=== PATIENT | male | born 1995 | race Caucasian/White ===

== ENCOUNTER 2020-08-02 01:28 | Emergency (ER) | payer SELFPAY ==
--- NOTE | ~2020-08-02 | XR_ITS ---
XR hand RT min 3V DATE: 08/02/2020 02:01 INDICATION: Punching injury. Laceration the medial side of hand TECHNIQUE: 3 views COMPARISON: None FINDINGS: There are multiple small radiopaque soft tissue foreign bodies of the fourth digit adjacent to the neck and head of the proximal phalanx and a larger up to 6 mm radiopaque foreign body at the proximal aspect of the fifth digit. There is evidence of a laceration of the medial aspect of the fou rth digit in the area of the radiopaque foreign bodies. No fracture or dislocation, periosteal reaction or bone destruction or joint space narrowing, erosive change or chondrocalcinosis. IMPRESSION: Soft tissue laceration of fourth digit and radiopaque foreign bodies of the fourth and fi fth digits Reviewed, dictated and finalized at location A. STRIAL ECOLOGIST IMPRESSION: Soft tissue laceration of fourth digit and radiopaque foreign lisa s of the fourth and fifth digits
[2020-08-02 01:49] VITALS: BP 118/84; PULSE 76; RESP 20; TEMP 36.8; O2SAT 96
[2020-08-02] MEDS: TETANUS,DIPHTHERIA,AC PERTUSSIS ADULT (0.5 ML) BOOSTRIX IM (02:03)
[2020-08-02 05:45] VITALS: BP 113/80; PULSE 89; RESP 18; O2SAT 98
--- NOTE | 2020-08-02 05:54 | ED.WOUNDLAC ---
HPI - Wound/Laceration General Chief Complaint: Wound/Laceration Stated Complaint: punched a table Time Seen by Provider: 08/02/20 01:32 Source: RN notes reviewed History of Present Illness HPI narrative: Patient presents emergency department from home for hand injury. Patient states this evening became upset and punched through a wooden table he also had a glass with the glass breaking he notes numerous lacerations over the right hand. The patient is right-hand dominant he states his last tetanus shot was over 10 years ago he denies any other trauma or injury Review of Systems Review of Systems: Narrative: Gen.: Denies fevers or chills Musculoskeletal: See HPI Neuro: Denies numbness, tingling, weakness Skin: See HPI Endo: Denies DM PMFSH Past Medical History Medical History (Updated 08/02/20 @ 06:07 by Osmany Guzmán DO) Patient denies significant medical history Social History Social History (Updated 08/02/20 @ 05:56 by Osmany Guzmán DO) Smoking status: Never smoker Exam Narrative: Exam Narrative: APPEARANCE: No acute distress, nontoxic, resting in bed Eyes: EOMI HEENT: Normocephalic, atraumatic, RESPIRATORY: No respiratory distress MUSCULOSKELETAl: The right hand has multiple lacerations please see skin for full details full flexion and extension of all 5 MCP PIP and DIP joints, capillary refill less than 3 seconds all 5 digits, from point tactile discrimination down to 3 mm in all 5 digits NEURO: Awake and alert. Following commands, speech normal, no focal deficits SKIN:: Warm, dry. Normal right lateral hand has a 7 cm laceration there is checkmark shaped and is linear and deep with mild venous bleeding and no foreign bodies, the dorsal base of the fifth digit has a 2 cm laceration that is linear and deep with a large piece of glass present, the right fourth digit has a 3 cm laceration over the PIP joint there is a linear and deep with laceration of the extensor tendon as well as bone fragment chip seen as well as several small pieces of glass, the palmar aspect of the right fourth digit proximal to the PIP joint has a 1 similar laceration is linear and deep with mild venous bleeding and no foreign body, but the dorsal hand over the base of the second digit has a small avulsion with several other superficial abrasions seen on dorsal aspect of the hand with no other foreign bodies noted Course Course Emergency Course: Called and discussed with Dr. Velásquez at [facility] for plastic surgery. At this time we reviewed the patient's lacerations as well as contamination exposure of bone and fourth digit states the patient may follow-up as an outpatient on Monday with plan for surgery on Monday request the patient started on Keflex with the patient to be placed in a splint of the third fourth and fifth digits of the right hand. Request the patient receive a Covid swab so the patient may be cleared for surgery Discussed with patient results of workup and diagnosis. Discussed need for follow-up with primary care, proper use of medication, and reasons to return to the emergency department. Patient understands and agrees to current treatment plan discussed my conversations with hand surgeon Vital Signs Vital signs: Vital Signs Temperature 98.2 F 08/02/20 01:49 Pulse Rate 76 08/02/20 01:49 Respiratory Rate 20 08/02/20 01:49 Blood Pressure 118/84 08/02/20 01:49 Pulse Oximetry 96 08/02/20 01:49 Temperature 98.2 F 08/02/20 01:49 Pulse Rate 89 08/02/20 05:45 Respiratory Rate 18 08/02/20 05:45 Blood Pressure 113/80 08/02/20 05:45 Pulse Oximetry 98 08/02/20 05:45 Procedures Laceration Laceration 1: ====== Skin Level ====== ====== Subcutaneous Layer ====== ====== Muscle Layer ====== ====== Tendon Layer ====== Dressin cm hand laceration: Verbal consent was obtained prior to the procedure. The wound was cleaned with Betadine and irrigated with copious
[2020-08-02] MEDS: CEPHALEXIN 500 MG CAPSULE PO (06:14)
--- NOTE | 2020-08-02 06:23 | PC.NURSE ---
pt has multi laceration to the right hand .hand splinted with a sterile dressing first and apartial ocl with a kojo wrap and web under ocl.
[2020-08-03 18:21] LABS: SARS-CoV-2 RNA PCR Negative
== END 2020-08-02 06:50 | disposition home or self-care (01) ==
PROVIDERS: Emergency Provider Emergency Medicine
DX: S66.326A Laceration of extensor muscle, fascia and tendon of right little finger at wrist and hand level, initial encounter (principal); S61.411A Laceration without foreign body of right hand, initial encounter; S61.214A Laceration without foreign body of right ring finger without damage to nail, initial encounter; Z20.822 Contact with and (suspected) exposure to COVID-19; Z23 Encounter for immunization; W25.XXXA Contact with sharp glass, initial encounter; W45.8XXA Other foreign body or object entering through skin, initial encounter; W22.8XXA Striking against or struck by other objects, initial encounter
CPT/HCPCS: 12005; 73130; 90471; 90715; 99283; A9270; C9803; U0003; U0005

== ENCOUNTER 2020-08-12 12:32 | Emergency (ER) | payer SELFPAY ==
[2020-08-12 12:36] VITALS: BP 134/98; PULSE 92; RESP 16; TEMP 36.2; O2SAT 99
[2020-08-12 13:03] VITALS: BP 117/72; PULSE 92; RESP 17; TEMP 35.8; O2SAT 99
--- NOTE | 2020-08-12 13:47 | PC.NURSE ---
PT WASHING HANDS WITH WARM WATER AND SOAP AT THIS TIME PER ESVIN SANTANA.
--- NOTE | 2020-08-12 14:52 | PC.NURSE ---
ESVIN cr at bedside for suture removal.
[2020-08-12 15:04] VITALS: BP 113/75; PULSE 68; RESP 16; O2SAT 100
--- NOTE | 2020-08-12 16:24 | ED.GENADULT ---
HPI - General Adult General Chief complaint: Wound/Laceration Stated complaint: suture removal Time Seen by Provider: 08/12/20 12:36 Source: patient Mode of arrival: ambulatory Limitations: no limitations History of Present Illness HPI narrative: Patient presents for evaluation of wound and suture removal on his right hand that was placed on 08-02-20. Patient states that he has not yet followed up with a hand surgeon and still experiences some tingling/numbness and decreased range of motion. He states that he will be seen by a hand surgeon this upcoming week. He states that he has left the bandage in place the entire 10 days. He states that he has been taking his antibiotic and pain medications as instructed. He denies any drainage, fever, chills, discharge or any other concerns. Related Data Allergies Allergy/AdvReac Type Severity Reaction Status Date / Time pecan nut Allergy Unknown Verified 08/12/20 14:37 Review of Systems Review of Systems: Narrative: CONSTITUTIONAL: Denies fever, chills, or sweats. EYES: Denies visual changes, redness, or discharge. ENT: Denies rhinorrhea, congestion, sore throat, or otalgia. CARDIOVASCULAR: Denies chest pain, palpitations, or edema. RESPIRATORY: Denies cough or dyspnea. GASTROINTESTINAL: Denies abdominal pain, nausea, vomiting, or diarrhea. GENITOURINARY: Denies dysuria or hematuria. SKIN: Reports lacerations denies rash or itching. MUSCULOSKELETAL: Denies back pain, joint pain, or myalgia. NEUROLOGIC: Denies headache, numbness, dizziness, or weakness. PSYCHIATRIC: Denies anxiety or depression. [facility] Past Medical History Medical History (Updated 08/12/20 @ 14:37 by Racheal Monterroso) Patient denies significant medical history Social History Social History (System 08/12/20 @ 14:37 by Ian Luna) Smoking status: Never smoker Exam Narrative: Exam Narrative: GENERAL: Well-appearing, well-nourished, and in no acute distress. HEAD: Normocephalic, atraumatic. EYES: PERRLA and EOMI. NECK: Supple. No adenopathy or masses. CHEST: Clear to auscultation. No respiratory distress. No wheezes rales or rhonchi EXTREMITIES: Some decreased range of motion and sensation to right third digit. No edema. SKIN: Well-healed lacerations to right hand. Dressing noted. No erythema or drainage noted. Warm, dry, no rash. NEURO: No focal deficits. Alert and oriented x3. PSYCH: Normal mood and affect. Course Course Emergency Course: Hand wash with antibacterial and saline to remove. Sutures are removed without complication. Lacerations are well-healed without signs of disease or infection. Vital Signs Vital signs: Vital Signs Temperature 97.2 F L 08/12/20 12:36 Pulse Rate 92 08/12/20 12:36 Respiratory Rate 16 08/12/20 12:36 Blood Pressure 134/98 H 08/12/20 12:36 Pulse Oximetry 99 08/12/20 12:36 Temperature 96.5 F L 08/12/20 13:03 Pulse Rate 68 08/12/20 15:04 Respiratory Rate 16 08/12/20 15:04 Blood Pressure 113/75 08/12/20 15:04 Pulse Oximetry 100 08/12/20 15:04 Medical Decision Making MDM Narrative Medical decision making narrative: Discussed with the patient the importance of following up with hand surgeon is tenderness in the injury was suspected during his original exam and there is still some signs of states on today. Patient states that he is planning on following up with a hand surgeon in the office next week. Patient has been instructed to finish his antibiotics and to wash the area with antibacterial soap and apply antibacterial ointment. Differential Diagnosis Differential Diagnosis: Lacerations, abscess, nerve injury, tendon injury Vital Signs Vital Signs: Vital Signs Temperature 97.2 F L 08/12/20 12:36 Pulse Rate 92 08/12/20 12:36 Respiratory Rate 16 08/12/20 12:36 Blood Pressure 134/98 H 08/12/20 12:36 Pulse Oximetry 99 08/12/20 12:36 Temperature 96.5 F L 08/12/20 13:03 Pulse Rate 68 08/12/20 15:04 Respiratory Ra
== END 2020-08-12 15:05 | disposition home or self-care (01) ==
PROVIDERS: Emergency Provider Emergency Medicine; PCP Emergency Medicine
DX: S61.401D Unspecified open wound of right hand, subsequent encounter (principal); X58.XXXD Exposure to other specified factors, subsequent encounter
CPT/HCPCS: 99281

== ENCOUNTER 2022-03-12 09:23 | Emergency (ER) | payer SELFPAY ==
[2022-03-12 09:40] VITALS: BP 141/100; PULSE 102; RESP 18; TEMP 36.4; O2SAT 100
[2022-03-12 10:02] LABS: Basophils Percent Auto 0.5 % (0.2-1.2); Eosinophils Percent Auto 0.5 % (0-4.4); Hematocrit 46.4 % (42.0-52.0); Hemoglobin 15.9 g/dL (14.0-18.0); Immature Granulocyte Absolute 0.03 K/mm3 (0.00-0.031); Immature Granulocyte Percent A 0.4 % (0-0.5); Lymphocytes Absolute Auto 2.12 K/mm3 (0.9-3.2); Lymphocytes Percent Auto 27.7 % (18.3-44.2); Mean Corpuscular HGB Conc 34.3 g/dl (32-36); Mean Corpuscular Hemoglobin 30.2 pg (26-34); Mean Platelet Volume 9.4 fl (7.4-10.4); Monocytes Absolute Auto 0.5 K/mm3 (0.1-0.6); Monocytes Percent Auto 6.4 % (2.6-8.5); Neutrophils Absolute Auto 4.9 K/mm3 (1.3-6.7); Neutrophils Percent Auto 64.5 % (45.5-73.1); Platelet Count Result 314 k/mm3 (150-375); Red Blood Count 5.27 M/mm3 (4.6-6.20); Red Cell Distribution Width 13.2 % (11.5-14.5); White Blood Count 7.7 K/mm3 (4.5-10.0)
--- NOTE | 2022-03-12 10:02 | ED.GENADULT ---
HPI - General Adult General Chief complaint: Psychiatric Symptoms Stated complaint: SI Time Seen by Provider: 03/12/22 09:26 Source: RN notes reviewed History of Present Illness HPI narrative: Patient presents emergency room from home for suicidal ideation. Patient states he has been having thoughts of harming himself for the past 1 week. He states his plan would be to shoot himself and he does have a gun at home states he did sit holding the gun last night but did not use it he states that his thoughts of suicide have been increased by his alcohol use and states he drinks heavily daily he denies any recent illness he denies any attempt to harm self or for the past Related Data Home Medications Medication Instructions Recorded Confirmed No Home Medications 03/12/22 03/12/22 Allergies Allergy/AdvReac Type Severity Reaction Status Date / Time pecan nut Allergy Unknown Verified 03/12/22 11:15 Review of Systems Review of Systems: Gen.: Denies fevers or chills ENT: Denies congestion Respiratory: Denies shortness of breath or cough CV: Denies chest pain or palpitations GI: Denies abdominal pain nausea, emesis or diarrhea Musculoskeletal: Denies back pain or muscle pain Neuro: Denies numbness, tingling, weakness or focal weakness Skin: Denies rash Psych: See HPI Except as documented, all other systems reviewed and negative PMFSH Past Medical History Medical History Patient denies significant medical history Social History Social History (Updated 03/12/22 @ 10:03 by Osmany Guzmán DO) Smoking status: Never smoker Tobacco type: e-cigarettes/vaping Alcohol intake: current Substance use type: crack/cocaine Gender identity (if verbalized by the patient): Male Exam Narrative: APPEARANCE: No acute distress, nontoxic, resting in bed EYES: EOMI HEENT: Normocephalic, atraumatic, OMM RESPIRATORY: No respiratory distress Clear to auscultation bilaterally with no rhonchi wheezing or rales. CARDIOVASCULAR: Regular rate and rhythm without murmurs rubs or gallops. ABDOMINAL: Soft, nontender, nondistended, no rebound or guarding MUSCULOSKELETAl: Moves all extremities. No clubbing, cyanosis or edema. NEURO: Awake and alert. Following commands, speech normal, no focal deficits SKIN:: Warm, dry. No rashes lesions or abrasions PSYCHIATRIC: Positive suicidal ideation, denies homicidal ideation Course Course Emergency Course: Patient is medically cleared for psychiatric placement and transport Patient evaluated by crisis spanish literature professor and patient is voluntary at this time Patient accepted at [facility] by Dr. Montenegro. He request the patient receive a banana bag prior to being transferred Vital Signs Vital signs: Vital Signs Temperature 97.5 F L 03/12/22 09:40 Pulse Rate 102 H 03/12/22 09:40 Respiratory Rate 18 03/12/22 09:40 Blood Pressure 141/100 H 03/12/22 09:40 Pulse Oximetry 100 03/12/22 09:40 Temperature 97.8 F 03/12/22 17:45 Pulse Rate 88 03/12/22 17:45 Respiratory Rate 16 03/12/22 17:45 Blood Pressure 144/86 H 03/12/22 17:45 Pulse Oximetry 99 03/12/22 17:45 Medical Decision Making Vital Signs Vital Signs: Vital Signs Temperature 97.5 F L 03/12/22 09:40 Pulse Rate 102 H 03/12/22 09:40 Respiratory Rate 18 03/12/22 09:40 Blood Pressure 141/100 H 03/12/22 09:40 Pulse Oximetry 100 03/12/22 09:40 Temperature 97.8 F 03/12/22 17:45 Pulse Rate 88 03/12/22 17:45 Respiratory Rate 16 03/12/22 17:45 Blood Pressure 144/86 H 03/12/22 17:45 Pulse Oximetry 99 03/12/22 17:45 Lab Data Result diagrams: 03/12/22 09:55 03/12/22 09:55 Labs: Lab Results 03/12/22 03/12/22 03/12/22 Range/Units 09:55 09:55 09:55 WBC 7.7 (4.5-10.0) K/mm3 RBC 5.27 (4.6-6.20) M/mm3 Hgb 15.9 (14.0-18.0) g/dL Hct 46.4 (42.0-52.0) % MCV 88.0
[2022-03-12] MEDS: THIAMINE HCL 200 MG/2 ML VIAL 100 MG IV PUSH (10:08)
[2022-03-12] MEDS: SODIUM CHLORIDE 0.9% IV 1,000 ML 999 ML IV CONT (10:08)
[2022-03-12 10:20] LABS: Alanine Aminotransferase 89 U/L (6-50); Albumin Level 4.4 g/dL (3.5-5.1); Alkaline Phosphatase 61 U/L (38-126); Anion Gap 15 mmol/L (8-16); Aspartate Amino Transferase 61 U/L (17-59); Bilirubin,Total 0.9 mg/dL (0.2-1.3); Blood Urea Nitrogen 11 mg/dL (9-20); Calcium 8.6 mg/dL (8.4-10.2); Carbon Dioxide 24 mmol/L (22-30); Chloride 104 mmol/L (98-107); Estimated Glomerular Filt Rate > 60; Ethanol 98 mg/dL (<10); Glucose 102 mg/dL (65-110); Potassium 3.1 mmol/L (3.4-5.0); Sodium 143 mmol/L (137-145)
[2022-03-12 10:38] LABS: SARS-CoV-2 RNA PCR Negative
[2022-03-12] MEDS: POTASSIUM CHLORIDE 20 MEQ TABLET 40 MEQ PO (10:48)
[2022-03-12 11:01] LABS: Magnesium 2.2 mg/dL (1.6-2.3)
[2022-03-12 11:45] LABS: Add Urine Microscopic? NO; Appearance Urine Clear (Clear); Bilirubin Urine Negative (Negative); Blood Urine Negative (Negative); Color Urine Yellow (Yellow); Glucose Urine UA Negative (Negative); Ketones Urine Negative (Negative); Leukocyte Esterase Ur Negative LEU/UL (Negative); Nitrate Urine Negative (Negative); Protein Urine Negative (Negative); Urobilinogen Urine Negative mg/dL (<2.0)
[2022-03-12 11:52] LABS: Amphetamine Screen Urine Negative (Negative); Barbiturate Screen Urine Negative (Negative); Benzodiazepines Screen Urine Negative (Negative); Cannabinoid Screen Urine Negative (Negative); Cocaine Screen Urine Positive (Negative); Methadone Screen Urine Negative (Negative); Opiate Screen Urine Negative (Negative); Phencyclidine Screen Urine Negative (Negative)
[2022-03-12 12:29] LABS: Ethanol 64 mg/dL (<10)
[2022-03-12 15:24] VITALS: BP 132/93; PULSE 89; RESP 16; TEMP 36.8; O2SAT 98
--- NOTE | 2022-03-12 15:44 | PC.NURSE ---
speaking to [facility] on the phone.
[2022-03-12 17:45] VITALS: BP 144/86; PULSE 88; RESP 16; TEMP 36.6; O2SAT 99
[2022-03-12 18:55] VITALS: BP 150/74; PULSE 88; RESP 16; O2SAT 99
--- NOTE | 2022-03-12 19:03 | PC.NURSE ---
[phone] no [facility] available called [facility] at [phone] no truck available
--- NOTE | 2022-03-12 19:37 | PC.NURSE ---
called [facility] at 1926 to request transport. declined called [facility] at 1928 for ETA update. ETA 15 - 30 minutes.
[2022-03-12] MEDS: chlordiazePOXIDE (*CRX) 25 MG CAPSULE 50 MG PO (20:09)
--- NOTE | 2022-03-12 20:15 | PC.NURSE ---
[facility] here
== END 2022-03-12 20:10 ==
PROVIDERS: Emergency Provider Emergency Medicine; PCP Emergency Medicine
DX: R45.851 Suicidal ideations (principal); E87.6 Hypokalemia; F10.10 Alcohol abuse, uncomplicated; F17.290 Nicotine dependence, other tobacco product, uncomplicated; F14.90 Cocaine use, unspecified, uncomplicated; Z20.822 Contact with and (suspected) exposure to COVID-19
CPT/HCPCS: 36415; 80053; 80307; 81003; 83735; 84443; 85025; 96361; 96374; 99285; A9270; C9803; J3411; J7030; J7120; U0003; U0005

== ENCOUNTER 2022-05-11 11:16 | Emergency (ER) | payer SELFPAY ==
[2022-05-11 11:49] VITALS: BP 130/75; PULSE 92; RESP 20; TEMP 36.6; O2SAT 98
[2022-05-11 12:38] LABS: Influenza A QL RT-PCR Negative (Negative); Influenza B QL RT-PCR Negative (Negative); SARS-CoV-2 RNA PCR Negative
--- NOTE | 2022-05-11 14:28 | ED.URI ---
HPI - URI/Sore Throat General Chief Complaint: Upper Respiratory Infection Stated Complaint: body aches and chills - exposure to flu Time Seen by Provider: 05/11/22 12:03 Source: patient Mode of arrival: ambulatory Limitations: no limitations History of Present Illness HPI Narrative: This is a 27 year old male that presents to the ER for cold symptoms present since yesterday. Reports fatigue, myalgias, chills, and sweats. Reports 2 people in his household currently have influenza. Denies fever, cough, congestion, sore throat, vomiting, or diarrhea. Related Data Home Medications Medication Instructions Recorded Confirmed No Home Medications 03/12/22 03/12/22 Allergies Allergy/AdvReac Type Severity Reaction Status Date / Time pecan nut Allergy Unknown Verified 05/11/22 11:52 Review of Systems Review of Systems: CONSTITUTIONAL: Reports chills, sweats. Denies fever EYES: Denies redness, or discharge. ENT: Denies rhinorrhea, congestion, sore throat, or otalgia. RESPIRATORY: Denies cough GASTROINTESTINAL: Denies abdominal pain, nausea, vomiting, or diarrhea. All systems reviewed & are unremarkable except as noted in HPI and below PMFSH Past Medical History Medical History Patient denies significant medical history Social History Social History (Updated 03/12/22 @ 10:03 by Osmany Guzmán DO) Smoking status: Never smoker Tobacco type: e-cigarettes/vaping Alcohol intake: current Substance use type: crack/cocaine Gender identity (if verbalized by the patient): Male Exam Narrative: GENERAL: Well-appearing, well-nourished, and in no acute distress. HEAD: Normocephalic, atraumatic. EYES: EOMI. ENT: Nares clear, no rhinorrhea or epistaxis. Mucous membranes moist. Oropharynx without tonsillar hypertrophy exudate or other lesions. Bilateral TMs pearly holt non-bulging NECK: Supple. No adenopathy or masses. CHEST: Clear to auscultation. No respiratory distress. No wheezes rales or rhonchi HEART: Regular rate and rhythm. No murmur heard. Normal peripheral pulses. EXTREMITIES: Normal range of motion. No edema. SKIN: Warm, dry, no rash. NEURO: No focal deficits. Alert and oriented x3. PSYCH: Normal mood and affect Course Vital Signs Vital signs: Vital Signs Temperature 98 F 05/11/22 11:49 Pulse Rate 92 05/11/22 11:49 Respiratory Rate 20 05/11/22 11:49 Blood Pressure 130/75 05/11/22 11:49 Pulse Oximetry 98 05/11/22 11:49 Oxygen Delivery Room Air 05/11/22 11:49 Temperature 98 F 05/11/22 11:49 Pulse Rate 92 05/11/22 11:49 Respiratory Rate 20 05/11/22 11:49 Blood Pressure 130/75 05/11/22 11:49 Pulse Oximetry 98 05/11/22 11:49 Oxygen Delivery Room Air 05/11/22 11:49 MDM - URI/Sore Throat MDM Narrative Medical decision making narrative: Patient presents to the emergency department for cold symptoms ongoing since yesterday. Reports household contacts with influenza. His flu and COVID tests are negative today. He is afebrile and nontoxic-appearing. Oxygen saturation is normal on room air. Lungs are clear on exam. He was instructed on continued care of likely viral infection. Spoke with patient about possibly prescribing Tamiflu if needed for prophylaxis or treatment if worsening symptoms. He does not wish to pursue this at this time. He is to follow-up with primary care provider. He was given warnings to return to the ER Lab Data Attestation: I reviewed the patient's lab results. Labs: Lab Results 05/11/22 Range/Units 11:54 Influenza A (RT-PCR) Negative (Negative) Influenza B (RT-PCR) Negative (Negative) SARS-CoV-2 RNA (RT-PCR) Negative Critical Care Time Critical Care Time Critical Care Time: No Discharge Plan Discharge Clinical Impression: Viral infection Patient Disposition: Home, Self-Care Condition: Stable Instructions: Viral Syndrome (ED) A
== END 2022-05-11 14:45 | disposition home or self-care (01) ==
PROVIDERS: Emergency Medicine; Emergency Provider Physician Assistant
DX: B34.9 Viral infection, unspecified (principal); Z20.822 Contact with and (suspected) exposure to COVID-19
CPT/HCPCS: 87636; 99283

== ENCOUNTER 2022-11-29 10:35 | Emergency (ER) | payer BC, SELFPAY ==
--- NOTE | ~2022-11-29 | XR_ITS ---
EXAMINATION: XR chest 2V DATE: 11/29/2022 11:35 INDICATION: 4 days of cough and chest tightness TECHNIQUE: PA and lateral views of the chest were obtained. COMPARISON: None FINDINGS: The lungs are clear with no focal airspace opacities, pulmonary edema, pleural effusion or pneumothor ax. The cardiomediastinal silhouette is normal. Calcified mediastinal lymph nodes consistent with old granulomatous disease. Mild thoracic spondylosis. IMPRESSION: 1. No acute cardiopulmonary disease. Reviewed, dictated and finalized at location A.
[2022-11-29 11:00] VITALS: BP 117/76; PULSE 90; RESP 16; TEMP 36.5; O2SAT 98
--- NOTE | 2022-11-29 11:42 | ED.URI ---
HPI - URI/Sore Throat General Chief Complaint: Upper Respiratory Infection Stated Complaint: Chest Tightness/Sore Throat Time Seen by Provider: 11/29/22 11:40 Source: patient, RN notes reviewed and old records reviewed Mode of arrival: ambulatory Limitations: no limitations History of Present Illness HPI Narrative: 27 year old male who presents to [facility] care with complaints of cough, chest tightness, sore throat and some nasal congestion since Monday and Monday with his symptoms worsening yesterday. Patient reports he stopped at a [employer] station and bought a vape and that is when he noticed all the symptoms,reports he threw it away. Patient has used cough drops for his symptoms, has not taken any OTC antihistamines or any decongestant medications or any OTC pain medications, Patient reports that he needs a work note. MD elicited complaint: cough, sore throat, rhinorrhea and nasal congestion Onset (ago): day(s) (4) Pain scale (0-10): 4 Able to tolerate fluids by mouth: Yes Exacerbating factors: supine positioning Treatments prior to arrival: other (cough drop) Related Data Allergies Allergy/AdvReac Type Severity Reaction Status Date / Time pecan nut Allergy Anaphylaxis Verified 11/29/22 11:12 Review of Systems Review of Systems: CONSTITUTIONAL: Denies malaise, chills, sweats, or fever. EYES: Denies visual changes, redness, or discharge. ENT: Reports rhinorrhea, congestion, no sinus pain,no otalgia positive for sore throat. CARDIOVASCULAR: Denies chest pain, palpitations, or edema, reports chest tightness with cough RESPIRATORY: Reports productive cough.? Denies dyspnea. GASTROINTESTINAL: Denies abdominal pain, nausea, vomiting, diarrhea SKIN: Denies rash or itching. MUSCULOSKELETAL: Denies myalgia. NEUROLOGIC: Denies headache. All systems reviewed & are unremarkable except as noted in HPI and below PMFSH Past Medical History Medical History (Updated 11/30/22 @ 17:51 by Norma Patiño NP) Patient denies significant medical history Surgical History Surgical History H/O hand surgery plastic surgery right hand at [facility] for lacerations and tendon repair Social History Social History (Updated 11/30/22 @ 17:39 by STEPH Sanchez Smoking status: Current every day smoker Tobacco type: e-cigarettes/vaping Alcohol intake: current Substance use type: crack/cocaine Gender identity (if verbalized by the patient): Male Comments At time of signature, agree with nursing past medical, surgical, social and family history. There is no relevant family history pertinent to the presenting complaint Exam Narrative: GENERAL: Well-appearing, well-nourished, and in no acute distress. HEAD: Normocephalic EYES: PERRLA, conjunctivae clear ENT: Nares clear, turbinates edematous and erythematous, clear discharge. Mucous membranes moist. TM pearly holt with dull light reflex bilaterally; no tragal tenderness. Oropharynx erythematous without lesions. Tonsils not present and without exudate, no drooling, no hoarseness, no trismus, uvula midline.post nasal drainage NECK: Supple. No lymphadenopathy CHEST:decreased left base with wheezing noted on to auscultation, breath sounds equal. positive for wheezing,no rhonchi, rales, or stridor. No respiratory distress, speaks in full sentences.SAO2 98% on room air, cough productive greenish tinged mucous HEART: Regular rate and rhythm. No murmur heard. SKIN: Warm, dry, no rash. NEURO: Alert and oriented x3. PSYCH: Normal mood and affect Course Course Emergency Course: Patient is aware of diagnosis, understands and agrees to treatment plan.? Anticipatory guidance given.? Patient agrees to follow-up as directed and is aware of reasons to seek care at the emergency department. Portions of this record may have been created with voice recognition software Level of Care: Ex
== END 2022-11-29 12:05 | disposition home or self-care (01) ==
PROVIDERS: Emergency Provider Registered Nurse
DX: J06.9 Acute upper respiratory infection, unspecified (principal); R05.9 Cough, unspecified; F17.290 Nicotine dependence, other tobacco product, uncomplicated
CPT/HCPCS: 71046; 99213; G0463